=== PATIENT | female | born 1945 | race Caucasian/White ===

== ENCOUNTER 2018-08-04 06:10 | Day surgery (SDC) | payer MEDICARE, BC ==
[~2018-08-04] VITALS: Ht 167.6 cm; Wt 43.6 kg
[2018-08-04] VITALS (20 sets, daily range): BP systolic 125–196; BP diastolic 56–87; PULSE 56–98; RESP 14–21; Ht 167.6 cm; Wt 43.6 kg
[2018-08-04] MEDS ORDERED: PROVENTIL HFA 6.7GM INHALER ONE (07:00)
--- NOTE | 2018-08-04 07:06 | PREAC ---
Date/Time of Note Date/Time of Note DATE: 08/04/18 TIME: 07:04 Anesthesia Eval and Record Evaluation Time Pre-Procedure Interview DATE: 08/04/18 TIME: 07:04 Age 73 Sex female NPO: 8 hrs Preoperative diagnosis R hand dog bite w/ exposed extensor tendon Planned procedure Debridement R hand wound, repair laceration, poss synthetic skin graft Past Medical History Past Medical History: Includes Cardio: Dyslipidemia Endo: Hypothyroid Pulm: Asthma Surgery & Anesthesia Issues No known issue Meds Anticoagulation: No Beta Robert within 24 hr: No Reason Beta Robert not given: Pt. not on B-Robert Meds reviewed: Yes Allergies Allergies Reviewed: Yes Labs/Studies Labs Reviewed: Reviewed by anesthesiologist test: N/A Pre-procedure Exam Airway: Adequate mouth opening, Adequate thyromental dist Mallampati: Mallampati III Teeth: Normal Lung: Normal Heart: Normal ASA Physical Status ASA physical status: 2 Emergency: None Planned Anesthetic General/MAC: LMA, MAC Pre-operative Attestations Prior to commencing anesthesia and surgery, the patient was re-evaluated, there was verification of: *The patient's identity *The results of appropriate recent lab work and preoperative vital signs *The above evaluation not changing prior to induction *Anesthetic plan, risk benefits, alternative and complications discussed with patient/family; questions answered; patient/family understands, accepts and wishes to proceed. JAMAR DIANA Aug 04, 2018 07:06
[2018-08-04] MEDS ORDERED: LEVO50TA7 PO (07:10)
[2018-08-04] MEDS ORDERED: CRES5 PO (07:11)
[2018-08-04] MEDS ORDERED: PREM3 PO (07:11)
[2018-08-04] MEDS ORDERED: ALBU8.5H8 INH (07:11)
[2018-08-04] MEDS ORDERED: MONT10TA21 PO (07:12)
[2018-08-04] MEDS ORDERED: PROPOFOL 40 ML ONE (07:26)
[2018-08-04] MEDS ORDERED: LIDOCAINE 2% (SDV) 5 ML INJ ONE (07:27)
[2018-08-04] MEDS ORDERED: ONDANSETRON 4 MG INJ ONE (07:27)
[2018-08-04] MEDS ORDERED: MIDAZOLAM 1 MG/ML 2 ML INJ ONE (07:27)
[2018-08-04] MEDS ORDERED: FENTAnyl 50 MCG/ML VIAL ONE (07:27)
[2018-08-04] MEDS ORDERED: BUPIVACAINE 0.5% (MPF) 30 ML INJ INJ ONE (07:30)
[2018-08-04] MEDS ORDERED: ONDANSETRON 4 MG INJ IV PRN (07:30)
[2018-08-04] MEDS ORDERED: OXYCODONE/ACETAMINOPHEN (5/325) TAB PO PRN ×2 (07:30)
[2018-08-04] MEDS ORDERED: HYDROmorphONE 1 MG/5 ML IV SYRINGE IV PRN ×2 (07:30)
[2018-08-04] MEDS ORDERED: DIPHENHYDRAMINE 50 MG INJ IV PRN (07:30)
[2018-08-04] MEDS ORDERED: morphine (1 MG/ML) 10ML SYRINGE IV PRN ×2 (07:30)
[2018-08-04] MEDS ORDERED: ALBUTEROL 0.083% (NEB) 2.5 MG/3 ML AMP HHN PRN (07:30)
[2018-08-04] MEDS ORDERED: FENTAnyl 50 MCG/ML VIAL IV PRN ×2 (07:30)
[2018-08-04] MEDS ORDERED: LABETALOL HCL 20MG INJ IV PRN (07:30)
[2018-08-04] MEDS ORDERED: MEPERIDINE 25 MG INJ IV PRN (07:30)
[2018-08-04] MEDS ORDERED: BUPIVACAINE 0.5% (SDV) 30 ML INJ ONE (07:53)
[2018-08-04] MEDS ORDERED: FAMOTIDINE 20 MG INJ ONE (07:56)
[2018-08-04] MEDS ORDERED: MINERAL OIL LIGHT 10 ML VIAL TOP ONE (08:00)
[2018-08-04] MEDS ORDERED: MINERAL OIL LIGHT 10 ML VIAL ONE (08:07)
--- NOTE | 2018-08-04 08:52 | SIPON ---
Date/Time of Note Date/Time of Note DATE: 08/04/18 TIME: 08:51 Operative Report Preoperative Diagnosis Right hand dog bite Postoperative Diagnosis Right hand dog bite Operation/Procedure Performed Right hand debridement and Integra application Surgeon Lynn Srivastava ssn/ssbn assistant navigator None Anesthesia: general, MAC Estimated blood loss: minimal Transfusion Required none Specimen None Grafts/Implants Integra Complications none LYNN SRIVASTAVA MD Aug 04, 2018 08:52
--- NOTE | 2018-08-04 08:53 | PAC ---
Date/Time of Note Date/Time of Note DATE: 08/04/18 TIME: 08:51 Post-Anesthesia Notes Post-Anesthesia Note Last documented vital signs Vital Signs Date Temp Pulse Resp B/P (MAP) Pulse Ox O2 O2 Flow FiO2 Time Delivery Rate 08/04/18 98.7 59 18 157/66 99 Room Air 0851 Activity: WNL Respiratory function: WNL Cardiovascular function: WNL Mental status: Baseline Pain reasonably controlled: Yes Hydration appropriate: Yes Nausea/Vomiting absent: Yes JAMAR DIANA Aug 04, 2018 08:53
--- NOTE | 2018-08-04 09:05 | OPR ---
Date/Time of Note Date/Time of Note DATE: 08/04/18 TIME: 08:52 Operative Report Procedure Date: Aug 04, 2018 Preoperative Diagnosis Right hand dog bite Postoperative Diagnosis Right hand dog bite Operation/Procedure Performed Right hand debridement and Integra application Surgeon Fernando Srivastava Flagstone Layer None Second Flagstone Layer: JAMAR DIANA Anesthesia Type: MAC Tourniquet Time: None Estimated Blood Loss: minimal Transfusion none Specimen None Grafts/Implants Integra 3x2cm Tubes/Drains None Complications none Pt Condition Post Procedure: stable Indications Sheryl is a 73 year old female who was attacked by a Labrador on 07/30/18. She was seen at a local ER and given antibiotics. She presented to my office on with avulsion to the dorsal aspect of the right hand with exposed extensor tendon on the dorsal ulnar aspect. There was also more superficial skin loss over the wrist. There was marginal necrosis in the proximal aspect of the wound. We discussed treatment to include primary repair, skin graft, and Integra application. I recommended trying a primary repair and if not successful, Integra graft application. In some cases, a secondary skin grafting can be avoided. We discussed needing a secondary skin graft over the Integra if it does not epithelialize on its own. She understood risks of loss of graft, wound complications, stiffness, swelling, more surgery, scarring, and other anesthesia related risks. She elected to proceed. Procedure Description Patient was identified in the preoperative holding area. The operative extremity was marked. She was brought back to the operating room. She is placed supine and light IV sedation was administered. 1 g of IV Ancef was administered. A nonsterile tourniquet was applied to the right arm. The right arm was then prepped and draped in the usual sterile fashion. Timeout was performed indicating correct patient site and procedure The wound of the dorsal right hand was inspected. There was a 3 x 2 cm area of exposed extensor tendon. This was overlying the extensor tendon to the small and ring finger. There was some early granulation tissue forming over the tendon. Paratenon is intact. Proximal over the wrist crease there is a 3x3cm area of more superficial epidermal skin loss which will heal by secondary intention. There were 2 small areas of nonviable skin which is debrided sharply using a scissor. There was another area of skin that was measured approximately 1 x 2 cm that had slight purple discoloration to it, indicating decreased perfusion but not necrotic. The edge was partly debrided. There was bleeding around the skin edge and underneath the skin flap there was a bleeding noted. I decided to leave this skin flap in place versus excising it in the hopes that this will heal secondarily. A meshed bilayer Integra graft was then cut to size in a triangular shape measuring 3 x 2 cm to cover the defect over the extensor tendon. The silicone layer was placed superficially and the skin graft was sutured down using 4 nylon suture. Cotton ball was soaked in mineral oil and wrapped with Xeroform. This was used for a bolster dressing and this was tied down over the graft using the nylon suture. Local injection of 0.5% Marcaine was injected around the wound for 5 cc of. The remainder of the wound was covered with Xeroform. She has placed into a well-padded volar splint. There is brisk capillary refill and all sponge of his counts correct on the case. She was awoken from anesthesia and taken to PACU stable condition. Plan: The silicone layer will be removed at 2-1/2 weeks. We will see how the wound heals to determine whether she needs secondary grafting. FERNANDO SRIVASTAVA MD Aug 04, 2018 09:05
[2018-08-04] MEDS ORDERED: hydrALAzine 20 MG INJ IV PRN (09:30)
== END 2018-08-04 11:09 | disposition home or self-care (01) ==
LOC: SDS 06:10
PROVIDERS: ATTEND Orthopaedic Surgery
DX: S66.324A Laceration of extensor muscle, fascia and tendon of right ring finger at wrist and hand level, initial encounter (principal); S66.326A Laceration of extensor muscle, fascia and tendon of right little finger at wrist and hand level, initial encounter; W54.0XXA Bitten by dog, initial encounter; E78.5 Hyperlipidemia, unspecified; E03.9 Hypothyroidism, unspecified; J45.909 Unspecified asthma, uncomplicated
CPT/HCPCS: 15275; 26418; 71045; 80048; 85025; 85610; 85730; J0360; J1170; J2250; J2405; J3010; Q4104; C9363